=== PATIENT | female | born 1935 | race Caucasian/White ===

== ENCOUNTER → 2018-06-17 | Outpatient (CLI) | payer MEDICARE, OTHER ==
[~2018-06-17] MED LIST: LEVO50TA86 PO; LOR5/325 PO; SIMV10TA98 PO
--- NOTE | 2018-06-17 15:48 | RADIOLOGY IMAGING REPORT ---
FACILITY: [facility] PATIENT NAME: Christiane Michael : 1935 MR: [id number] V: [id number] EXAM DATE: ORDERING PHYSICIAN: DARIEL SALINAS TECHNOLOGIST: Location: [facility] - [place] Patient: Christiane Michael : 1935 Visit/Account:[id number] Date of Sevice: 06/17/2018 DEXA Scan HISTORY: Postmenopausal. COMPARISON: 08/10/1999. LUMBAR SPINE: The bone mineral density (BMD) measured from L1-L4 correlates with a Z-score of -1.0 and a T-score of -3.3 which is compatible with osteoporosis as defined by the World Health Organization. The corresp onding risk of fracture in the lumbar spine is increased 6-8 times compared with a young adult [facility] population. This value has decreased by 15.2 % since the prior study. More than 5% change is co nsidered significant. HIP: Bone mineral density (BMD) measured in the left total hip region correlates with a Z-score of -1.1 an d a T-score of -3.5 which is compatible with osteoporosis as defined by the World Health Organization . The corresponding risk of fracture in the hip is increased 12 times compared with a young adult [facility] population. This value in the total hip has decreased by 16.9 % since the prior study. More than 5% change is considered significant. Bone mineral density (BMD) measured in the left Femoral Neck region measures 0.597 g/cm2. FOREARM: The bone mineral density (BMD) measured in the ULTRADISTAL left forearm, where trabecular bone predom inates, correlates with a Z-score of -1.2 and a T-score of -4.2 which is compatible with osteoporosis as defined by the World Health Organization. The corresponding risk of fracture in the distal forea rm is increased greater than 16 times compared with a young adult reference population. The bone mineral density (BMD) in the MIDSHAFT of the left forearm, where cortical bone predominates, correlates with a Z-score of -1.1 and a T-score of -4.0 which is compatible with osteoporosis as def ined by the World Health Organization. The corresponding risk of fracture in the midshaft of the fore arm is increased greater than 16 times compared with a young adult reference population. This value was not previously measured. IMPRESSION: 1. Lumbar spine: Compatible with osteoporosis. There has been significant decrease in the bone min eral density since the previous exam. 2. Left Total Hip: Compatible with osteoporosis. There has been significant decrease in the bone m ineral density since the previous exam. 3. Left Femoral Neck: Bone Mineral Density is 0.597 g/cm2 4. Left Forearm: Compatible with osteoporosis. The left forearm was not previously measured.. The next DEXA scan of this patient should include the following sites: L1-L4, the left hip and the le ft forearm. FRAX? WHO Fracture Risk Assessment Tool link: <http://www.shef.ac.uk/FRAX/tool.jsp?locationValue=9> PLEASE NOTE: 1) The World Health Organization defines low BMD as follows: T-score Normal > -1 Osteopenia < -1 and > -2.5 Osteoporosis < -2.5 without fractures Established osteoporosis < -2.5 with fractures 2) In general, you may wish to consider: Diagnosis Treatment Follow-up DEXA Normal BMD Prevention 2-3 years Osteopenia Prevention/therapy 1-2 years Osteoporosis Therapy Yearly 3) Fracture risk estimated from the T-score is more accurate for vertebral fractures (often spontane ous) than for hip fractures. Report Dictated By: Inocencia Krishnamurthy MD at 06/17/2018 3:40 PM Report E-Signed By: Inocencia Krishnamurthy MD at 06/17/2018 3:43 PM WSN:[id number]
== END ==
LOC: RAD 12:59
PROVIDERS: ATTEND Family Medicine
DX: M81.0 Age-related osteoporosis without current pathological fracture (principal)
CPT/HCPCS: 77080

== ENCOUNTER → 2018-09-01 | Outpatient (CLI) | payer OTHER, MEDICARE ==
[2018-09-01 11:51] LABS: PLATELET COUNT, AUTOMATED 309 K/uL (150-450)
== END ==
LOC: LAB 11:32
PROVIDERS: ATTEND Nurse Practitioner Primary Care
DX: R10.11 Right upper quadrant pain (principal)
CPT/HCPCS: 36415; 82040; 82150; 82247; 82310; 82374; 82435; 82565; 82947; 83690; 84075; 84132; 84155; 84295; 84450; 84460; 84520; 85025

== ENCOUNTER → 2018-09-05 | Outpatient (CLI) | payer MEDICARE, OTHER ==
--- NOTE | 2018-09-05 09:16 | RADIOLOGY IMAGING REPORT ---
FACILITY: [facility] PATIENT NAME: Christiane Michael : 1935 MR: [id number] V: [id number] EXAM DATE: ORDERING PHYSICIAN: SARAH JOHNSON TECHNOLOGIST: Location: [facility] - [place], [place] Patient: Christiane Michael : 1935 Visit/Account:[id number] Date of Sevice: 09/05/2018 GALLBLADDER HISTORY: Right upper quadrant pain COMPARISON: None. FINDINGS: Gallbladder: Unremarkable; no stones or sludge. Liver: Negative. Common duct: Normal, 5.4 mm diameter. Pancreas: Partially obscured by bowel, visualized aspects unremarkable. Right kidney: Right kidney appears unremarkable measuring 7.9 cm in length Upper abdominal aorta and IVC: Patent. Ascites: None visualized. IMPRESSION: Unremarkable right upper quadrant ultrasound Report Dictated By: Brittaney Shah MD at 09/05/2018 8:49 AM Report E-Signed By: Brittaney Shah MD at 09/05/2018 9:12 AM WSN:[email or web address]
== END ==
LOC: US 01:29
PROVIDERS: ATTEND Nurse Practitioner Primary Care
DX: R10.11 Right upper quadrant pain (principal)
CPT/HCPCS: 76705

== ENCOUNTER → 2018-09-11 | Outpatient (CLI) | payer MEDICARE, OTHER ==
[~2018-09-11] MED LIST changes: +SINCALIDE 5 MCG VIAL INJ ONE; +WATER FOR INJ,STERILE 20 ML 20 ML ONE
--- NOTE | 2018-09-11 14:58 | RADIOLOGY IMAGING REPORT ---
FACILITY: [facility] PATIENT NAME: Christiane Michael : 1935 MR: [id number] V: [id number] EXAM DATE: ORDERING PHYSICIAN: SARAH JOHNSON TECHNOLOGIST: Location: [facility] [place] Patient: Christiane Michael : 1935 Visit/Account:[id number] Date of Sevice: 09/11/2018 NM HIDA SCAN HISTORY: Right upper quadrant abdominal pain TECHNIQUE: 6.2 mCi Tc99m Hepatolite was injected intravenously. Multiple sequential gamma camera eloy ges of the abdomen were obtained for 19 minutes. At that time, Kinevac was injected intravenously and an additional 30 minutes of gamma camera imaging data was acquired. A computer-generated region of i nterest was placed around the gallbladder and time-activity curve for the gallbladder was derived. Th e gallbladder ejection fraction was calculated. COMPARISON: Gallbladder ultrasound September 05, 2018 FINDINGS: Liver uptake and excretion: Unremarkable. Time to appearance: Bile ducts: 10 minutes. Gallbladder: 13 minutes. Duodenum: 17 minutes. Duodenal-gastric reflux / extravasation: None. Post IV Kinevac: Normal and prompt contraction of the gallbladder. Patient symptoms: Abdominal pressure following CCK Ejection fraction = 58% (normal range >35%). IMPRESSION: Normal gallbladder ejection fraction of 58% Report Dictated By: Brittaney Shah MD at 09/11/2018 2:49 PM Report E-Signed By: Brittaney Shah MD at 09/11/2018 2:51 PM WSN:[email or web address]
== END ==
LOC: NUC 01:03
PROVIDERS: ATTEND Nurse Practitioner Primary Care
DX: R10.11 Right upper quadrant pain (principal)
CPT/HCPCS: 78226; A9537; J2805

== ENCOUNTER 2018-09-30 00:39 | Day surgery (SDC) | payer MEDICARE, OTHER ==
[~2018-09-30] VITALS: Ht 154.9 cm; Wt 47.2 kg
[~2018-09-30 00:39] MED LIST changes: +ALLE10VI19 PO; -SINCALIDE 5 MCG VIAL INJ ONE; -WATER FOR INJ,STERILE 20 ML 20 ML ONE
[2018-09-30] MEDS ORDERED: FAMOTIDINE 20 MG TAB PO ONE (11:40)
[2018-09-30] MEDS ORDERED: ceFAZolin(*) 2GM/D5W 50ML 50 ML IVPB ONE (11:40)
[2018-09-30] MEDS ORDERED: MIDAZOLAM 2 MG/2 ML VIAL IVP PRN (11:40)
[2018-09-30] MEDS ORDERED: NORMOSOL R SOLN(*) 1000 ML BAG 1,000 ML IV PRN (11:40)
[2018-09-30] MEDS ORDERED: LIDOCAINE/SOD BICARB 8.4% SYR ID ONE (11:40)
[2018-09-30 11:55] VITALS: BP 120/59
[2018-09-30] MEDS ORDERED: fentaNYL CITR 250 MCG/5 ML AMP ONE (12:28)
[2018-09-30] MEDS ORDERED: PROPOFOL EMUL(*) 10MG/ML 20 ML 20 ML ONE (12:29)
[2018-09-30] MEDS ORDERED: LIDOCAINE MPF 1% 5 ML VIAL ONE (12:29)
[2018-09-30] MEDS ORDERED: INDOCYANINE GREEN 25 MG VIAL IVP ONE (13:50)
[2018-09-30] MEDS ORDERED: BUPIVACAINE/EPI 0.5% 50ML VIAL INFIL ONE (14:05)
[2018-09-30] MEDS ORDERED: DEXAMETHASONE SOD 4 MG/ML VIAL ONE (14:19)
[2018-09-30] MEDS ORDERED: KETOROLAC 30 MG/ML VIAL ONE (14:20)
[2018-09-30] MEDS ORDERED: ONDANSETRON 4 MG/2 ML VIAL ONE (14:20)
[2018-09-30] MEDS ORDERED: SUGAMMADEX SOD 200 MG/2 ML SDV ONE (14:21)
[2018-09-30] MEDS ORDERED: TRAM-420 PO (15:41)
--- NOTE | 2018-09-30 15:45 | Short(Outpt) Discharge Summary ---
Discharge Summary Reason for Hosp/Final Diag: (1) Right upper quadrant abdominal pain Hospital Course & Plan: pt presented for cholecystectomy. she tolerated the procedure well. she will be discharged home when criteria met. Departure Discharge to: Home Discharge Instructions Home Meds Active Scripts Tramadol Hcl (TRAMADOL HCL) 50 Mg Tablet, 50 MG PO Q6H PRN for PAIN, #14 TAB Prov:MORGAN DONG 09/30/18 Reported Medications Aller Xt-Tree Pollen-Melaleuca (Melaleuca) 1:20 Vial, 1 CAPSULE PO BID 09/25/18 Simvastatin (SIMVASTATIN) 10 Mg Tablet, 10 MG PO HS, TAB 12/19/15 Levothyroxine Sodium (LEVOTHYROXINE SODIUM) 50 Mcg Tablet, 25 MCG PO QDAY, TAB 12/19/15 Diet: Regular Activity: No Heavy Lifting Special Instructions: no lifting more than 15 lbs for 2 wks. ok to shower tomorrow. take stool softener if taking pain meds. f/u dr. flores dong 2 wks ([phone]). MORGAN DONG Sep 30, 2018 15:45
--- NOTE | 2018-09-30 15:49 | Post Operative Progress Note ---
Post Operative Progress Note Date: Sep 30, 2018 Time: 15:45 Surgeon: dr. flores dong #[id number] Machine Shorthand Teacher: none Anesthesia: gen, local dr. taylor Pre-Op Diagnosis: ruq pain Post-Op Diagnosis: same Procedure(s): robotic cholecystectomy Specimen Removed:(May be N/A): gb Complications: none Estimated Blood Loss: minimal Date OP Note Dictated: Sep 30, 2018 Time OP Note Dictated: 15:46 MORGAN DONG Sep 30, 2018 15:49
--- NOTE | 2018-09-30 23:55 | OPERATIVE REPORT 1 ---
EVENT DATE: September 30, 2018 SURGEON: Puneet Gill MD ANESTHESIOLOGIST: Mayco Barger MD ANESTHESIA: General and local. SORT SUPERVISOR: None. PREOPERATIVE DIAGNOSIS Right upper quadrant pain. POSTOPERATIVE DIAGNOSIS Right upper quadrant pain. PROCEDURE PERFORMED Robotic cholecystectomy. FLUIDS IV crystalloid. ESTIMATED BLOOD LOSS Minimal. SPECIMENS Gallbladder. COMPLICATIONS None. INDICATIONS FOR PROCEDURE This is an 83-year-old female with right upper quadrant pain. She has pain when eating greasy food. On physical exam, patient is stable. Her abdomen is soft. Risks and benefits of the procedure were explained and consent was signed. DESCRIPTION OF PROCEDURE Patient was taken to the operating room and placed in the supine position. General anesthesia was administered per anesthesia team. Patient was prepped and draped in the normal sterile fashion. Local analgesia was injected in the dermis below the umbilicus, and a small incision was made. The umbilical stump was grasped and elevated. A Veress needle was inserted. Pneumoperitoneum was achieved. Veress needle was removed. An 8 mm port was advanced. After injecting local analgesia under direct vision, two more 8 mm left-sided ports were placed and one more right-sided 8 mm port. I inspected the abdomen. There was no injury upon entry. The robot was docked. The fundus was grasped and retracted superiorly and laterally. The infundibulum was grasped and retracted. Electrocautery was used to free the cystic duct and cystic artery of surrounding tissue. Both structures were seen going directly to the gallbladder. Three clips were placed on the cystic duct, and it was divided sharply between the distal two clips. A clip was placed on the cystic artery, and then it was divided toward the gallbladder with cautery scissors. The gallbladder was taken off the liver bed with cautery scissors. It was removed with an Endo Catch bag through one of the port sites. The right upper quadrant was inspected. There was no spillage. It was hemostatic. Clips were confirmed to be in place. Ports were removed under direct vision. Pneumoperitoneum was relieved. Final port was removed. All skin incisions were closed with 4-0 Monocryl subcuticular stitches. More local analgesia was injected. Appropriate dressings were applied. Patient tolerated the procedure well. There were no complications. [facility]PITALKaterina
== END 2018-09-30 16:50 | disposition home or self-care (01) ==
LOC: OR 00:39
PROVIDERS: ATTEND Surgery
DX: R10.11 Right upper quadrant pain (principal); E03.9 Hypothyroidism, unspecified; E78.5 Hyperlipidemia, unspecified
CPT/HCPCS: 47562; 84443; 88304; A9270; J1100; J1885; J2001; J2405; J2704; J3010; S2900; J0690